=== PATIENT | female | born 2005 | race Hispanic/Latino ===

== ENCOUNTER 2024-10-10 19:26 | Emergency (ER) | payer BC, OTHER ==
[2024-10-10] MEDS ORDERED: NA CHLORIDE 0.9% 1,000 ML ONE (20:29)
[2024-10-10 20:46] LABS: Absolute Basophils 0.1 K/uL (0-0.5); Absolute Eosinophils 0.2 K/uL (0-0.5); Absolute Lymphocytes (CBC) 1.9 K/uL (0.7-4.9); Absolute Monocytes 0.5 K/uL (0.1-1.3); Absolute Neutrophil 7.2 K/uL (1.8-8.0); Basophils % 0.5 % (0-1.3); Hematocrit 41.4 % (36.0-45.0); Hemoglobin 14.4 g/dL (12.0-15.0); MCH 31.1 pg (27.0-35.0); MCHC 34.7 g/dL (32.0-36.0); MCV 89.6 fL (80-100); MPV 10.3 fL (7.6-11.3); Monocytes % 5.3 % (3.3-12.3); Neutrophils % 73.2 % (41.7-73.7); Platelets 198 thou/uL (152-406); RBC Red Blood Cell Count 4.62 M/uL (3.86-4.86); Red Cell Distribution Width 13.1 % (12.1-15.2); Specific Gravity 1.009 (1.005-1.030)
[2024-10-10] MEDS ORDERED: MORPHINE 2 MG/ML SYR ONE ×2 (20:46→23:04)
[2024-10-10] MEDS ORDERED: ONDANSETRON 4 MG/2 ML VIAL ONE (20:46)
[2024-10-10 20:48] LABS: Specific Gravity 1.009 (1.005-1.030); Sqamous Epithelial <5 /HPF (None Seen); Urine Bacteria <20 /HPF (<20); Urine Bilirubin NEGATIVE (Negative); Urine Blood 1+ (Negative); Urine Clarity Turbid (Clear); Urine Color Colorless (Yellow); Urine Culture Reflex Order NOT NEEDED; Urine Glucose NEGATIVE (Negative); Urine Ketones NEGATIVE (Negative); Urine Microscopic Reflex YN ORDER UMIC; Urine Nitrite NEGATIVE (Negative); Urine Protein NEGATIVE (Negative); Urine Urobilinogen Normal (Normal); Urine WBC <5 /HPF (<5); Urine Yeast (Budding) Trace /HPF (None Seen); Urine pH 6.5 (5.0-7.0)
[2024-10-10 20:50] LABS: PT Prothrombin Time 11.8 SECONDS (9.4-12.5); PTT, Activated Partial Thromb 33.8 SECONDS (24.3-36.9); Protime INR 1.06
[2024-10-10 21:02] LABS: Albumin 4.3 g/dL (3.4-5.0); Anion Gap 6.9 mEq/L (5.0-15.0); Bilirubin Total 0.4 mg/dL (0.2-1.0); Globulin 4.2 g/dL (2.3-3.5); Potassium 3.9 mEq/L (3.5-5.1); Protein, Total 8.5 g/dL (6.4-8.2)
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
[2024-10-10 23:48] VITALS: O2SAT 100
[2024-10-10 23:50] VITALS: BP 107/64; TEMP 97.9
== END 2024-10-10 23:28 | disposition home or self-care (01) ==
LOC: ER 19:26
DX: R10.31 Right lower quadrant pain (principal); V49.40XA Driver injured in collision with unspecified motor vehicles in traffic accident, initial encounter
CPT/HCPCS: 96361; 85025; 81001; 36415; 81025; 85610; 85730; 83690; 80053; 71260; 74177; 96375; 96374; 99284; Q9967; J2270 ×2; J2405; J7030